=== PATIENT | female | born 1990 | race Caucasian/White ===

== ENCOUNTER 2016-12-05 01:09 | Emergency (ER) | payer BC ==
[~2016-12-05] VITALS: Ht 165.1 cm; Wt 61.4 kg
[~2016-12-05 01:09] MED LIST: PERCOCET 325 MG1 TA2 PO; PREDNISONE20 MG PO; PRENATAL1 TA1 PO
[2016-12-05 01:13] VITALS: BP 137/61
[2016-12-05] MEDS ORDERED: NEXPLANON68 MG (01:13)
[2016-12-05 01:54] LABS: BASO # 0.1 (0.0-0.2); BASO % 0.5 % (0.0-2.0); EOS % 0.3 % (0-4.0); GRAN # 7.4 (1.4-6.5); GRAN % 70.8 % (42.2-75.2); HEMATOCRIT 38.3 % (37.0-47.0); HEMOGLOBIN 13.1 g/dl (12.5-16.0); LYMPH % 18.9 % (20.0-51.0); MEAN CELL VOLUME 88 fl (80.0-100.0); MEAN CORPUSCULAR HEMOGLOBIN 30 pg (27.0-31.0); MEAN CORPUSCULAR HGB CONC 34 g/dl (33.0-37.0); MEAN PLATELET VOLUME 9.1 fl (7.4-10.4); MONO % 9.1 % (1.7-9.3); PLATELET COUNT 246 K/mm3 (130-400); RED BLOOD COUNT 4.37 M/mm3 (4.10-5.30); REDCELL DISTRIBUTION WIDTH-CV 12.3 % (11.5-14.5); WHITE BLOOD COUNT 10.4 K/mm3 (4.8-10.8)
[2016-12-05 02:09] LABS: ADJUSTED CALCIUM 8.9 mg/dL (8.4-10.2); ALANINE AMINOTRANSFERASE 22 U/L (9-52); ALBUMIN 4.5 gm/dL (3.5-5.0); ALKALINE PHOSPHATASE 59 U/L (50-136); ANION GAP 14 mmol/L (7-16); BILIRUBIN,TOTAL 0.6 mg/dL (0.0-1.0); BLOOD UREA NITROGEN 17 mg/dL (7-17); CALCIUM 9.3 mg/dL (8.4-10.2); CARBON DIOXIDE 24 mmol/L (22-30); CHLORIDE 102 mmol/L (98-107); CREATININE, serum 0.76 mg/dL (0.52-1.25); GLUCOSE 95 mg/dL (74-106); LIPASE 134 U/L (23-300); POTASSIUM 3.8 mmol/L (3.4-5.0); SODIUM 140 mmol/L (137-145); TOTAL PROTEIN 7.8 gm/dL (6.4-8.2)
[2016-12-05 02:36] LABS: TROPONIN-I < 0.012 ng/mL (0.000-0.034)
[2016-12-05] MEDS ORDERED: ATIVAN 0.50.5 MG/TAB PO (02:45)
[2016-12-05 02:52] VITALS: PULSE 66; TEMP 98.2
== END 2016-12-05 02:54 | disposition home or self-care (01) ==
LOC: COL.ER 01:09
PROVIDERS: Physician Assistant
DX: R07.9 Chest pain, unspecified (principal); R09.1 Pleurisy; R11.0 Nausea; R06.02 Shortness of breath; M62.838 Other muscle spasm; F41.9 Anxiety disorder, unspecified
CPT/HCPCS: J2060

== ENCOUNTER 2018-04-06 01:39 | Emergency (ER) | payer OTHER, BC ==
[~2018-04-06] VITALS: Ht 165.1 cm; Wt 68.6 kg
[~2018-04-06 01:39] MED LIST changes: +ATIVAN 0.50.5 MG/TAB PO; +NEXPLANON68 MG
[2018-04-06 01:44] VITALS: BP 132/68; TEMP 98
[2018-04-06 02:25] LABS: COLLECTION METHOD CLEAN CATCH
[2018-04-06 02:28] LABS: BASO # 0.1 (0.0-0.2); BASO % 0.6 % (0.0-2.0); EOS # 0.1 (0.0-0.7); EOS % 0.7 % (0-4.0); GRAN # 8.1 (1.4-6.5); GRAN % 68.5 % (42.2-75.2); LYMPH # 2.7 (1.2-3.4); LYMPH % 22.6 % (20.0-51.0); MEAN CELL VOLUME 88 fl (80.0-100.0); MEAN CORPUSCULAR HEMOGLOBIN 31 pg (27.0-31.0); MEAN CORPUSCULAR HGB CONC 35 g/dl (33.0-37.0); MEAN PLATELET VOLUME 9.3 fl (7.4-10.4); MONO # 0.9 (0.1-0.6); MONO % 7.3 % (1.7-9.3); PLATELET COUNT 235 K/mm3 (130-400); RED BLOOD COUNT 3.93 M/mm3 (4.10-5.30); REDCELL DISTRIBUTION WIDTH-CV 12.9 % (11.5-14.5)
[2018-04-06 02:32] LABS: MUCOUS Present /lpf; PH 6 (5-8); SQUAMOUS EPITHELIAL 0-2 /hpf; URINE APPEARANCE Hazy; URINE BACTERIA None Seen /hpf; URINE BILIRUBIN Negative (NEGATIVE); URINE BLOOD 3+ (NEGATIVE); URINE COLOR Yellow; URINE GLUCOSE Negative (NEGATIVE); URINE KETONE Negative (NEGATIVE); URINE LEUKOCYTE ESTERASE Negative (NEGATIVE); URINE NITRATE Negative (NEGATIVE); URINE PROTEIN(semi-quant) 1+ (NEGATIVE); URINE RBC 0-2 /hpf; URINE UROBILINOGEN Negative (NEGATIVE)
[2018-04-06 02:43] LABS: HEMATOCRIT 34.7 % (37.0-47.0)
[2018-04-06 02:48] LABS: ALBUMIN 3.9 gm/dL (3.5-5.0); BILIRUBIN,TOTAL 0.3 mg/dL (0.0-1.0); CALCIUM 8.8 mg/dL (8.4-10.2); CREATININE, serum 0.59 mg/dL (0.52-1.25); POTASSIUM 3.3 mmol/L (3.4-5.0); TOTAL PROTEIN 6.9 gm/dL (6.4-8.2)
[2018-04-06] MEDS ORDERED: K-DUR 10 MEQ T10 MEQ PO (02:54)
[2018-04-06 03:17] VITALS: PULSE 79
== END 2018-04-06 03:19 | disposition home or self-care (01) ==
LOC: COL.ER 01:39
PROVIDERS: Emergency Medicine
DX: R00.1 Bradycardia, unspecified (principal); Z87.59 Personal history of other complications of pregnancy, childbirth and the puerperium
CPT/HCPCS: J7030

== ENCOUNTER 2018-12-25 13:34 | Emergency (ER) | payer OTHER ==
[~2018-12-25] VITALS: Ht 165.1 cm; Wt 65.9 kg
[~2018-12-25 13:34] MED LIST changes: +K-DUR 10 MEQ T10 MEQ PO
[2018-12-25 13:42] VITALS: TEMP 97.2
[2018-12-25 14:26] LABS: BASO % 0.3 % (0.0-2.0); EOS % 0.2 % (0-4.0); GRAN # 7.2 (1.4-6.5); GRAN % 74.7 % (42.2-75.2); HEMATOCRIT 41.4 % (37.0-47.0); HEMOGLOBIN 13.8 g/dl (12.5-16.0); LYMPH # 1.7 (1.2-3.4); LYMPH % 17.4 % (20.0-51.0); MEAN CELL VOLUME 88 fl (80.0-100.0); MEAN CORPUSCULAR HEMOGLOBIN 29 pg (27.0-31.0); MEAN CORPUSCULAR HGB CONC 33 g/dl (33.0-37.0); MEAN PLATELET VOLUME 9.1 fl (7.4-10.4); MONO # 0.7 (0.1-0.6); MONO % 7.1 % (1.7-9.3); PLATELET COUNT 331 K/mm3 (130-400); RED BLOOD COUNT 4.69 M/mm3 (4.10-5.30); REDCELL DISTRIBUTION WIDTH-CV 12.3 % (11.5-14.5)
[2018-12-25 14:27] LABS: ALANINE AMINOTRANSFERASE < 6 U/L (9-52); ALBUMIN 4.6 gm/dL (3.5-5.0); ALKALINE PHOSPHATASE 64 U/L (50-136); ANION GAP 13 mmol/L (7-16); AST,SGOT 24 U/L (15-37); BILIRUBIN,TOTAL 0.5 mg/dL (0.0-1.0); BLOOD UREA NITROGEN 13 mg/dL (7-17); CALCIUM 9.5 mg/dL (8.4-10.2); CARBON DIOXIDE 23 mmol/L (22-30); CHLORIDE 104 mmol/L (98-107); CREATININE, serum 0.79 (0.52-1.25); GLUCOSE 109 mg/dL (74-106); POTASSIUM 3.9 mmol/L (3.4-5.0); SODIUM 140 mmol/L (137-145); TOTAL PROTEIN 8.4 gm/dL (6.4-8.2)
[2018-12-25 14:45] LABS: HCG,QUANTITATIVE < 2 mIU/mL (0-5)
[2018-12-25] MEDS ORDERED: METHERGINE0.2 MG/TAB PO (17:02)
[2018-12-25 17:55] VITALS: BP 119/71; PULSE 77
== END 2018-12-25 17:56 | disposition home or self-care (01) ==
LOC: COL.ER 13:34
PROVIDERS: Nurse Practitioner
DX: N92.0 Excessive and frequent menstruation with regular cycle (principal); Z88.0 Allergy status to penicillin; Z88.1 Allergy status to other antibiotic agents
CPT/HCPCS: J2210

== ENCOUNTER 2024-03-07 06:12 | Inpatient (IN) | payer BC ==
[2024-03-07] VITALS (53 sets, daily range): BP systolic 97–129; BP diastolic 51–110; PULSE 59–90; TEMP 97.8–98.6
[~2024-03-07] VITALS: Ht 165.1 cm; Wt 90.0 kg
[~2024-03-07 06:12] MED LIST changes: +METHERGINE0.2 MG/TAB PO
--- NOTE | 2024-03-07 06:20 | NUR ---
PT AMBULATES ONTO THE UNIT WITH SIGNIFICANT OTHER FOR SCHEDULED INDUCTION OF LABOR.PT REPORTS ACTIVE MOVEMENTS FROM BABY.PT DENIES LOF/VB AND CONTRACTIONS.POC REVIEWED WITH PT AND SIGNIFICANT OTHER.EFM AND TOCO TRACING CATEGORY 1. CONSENTS REVIEWED AND SIGNED.PT VERBALIZES UNDERSTANDING.
[2024-03-07] MEDS ORDERED: LR 1,000 ML IV SCH (06:30)
[2024-03-07] MEDS ORDERED: LR & Oxytocin 500 ML IV SCH (06:30)
[2024-03-07] MEDS ORDERED: PRENATAL MVI (06:34)
[2024-03-07 07:23] LABS: BASO % 0.2 % (0.0-2.0); EOS # 0.1 K/mm3 (0.0-0.7); EOS % 0.5 % (0.0-4.0); GRAN % 73.7 % (42.2-75.2); HEMOGLOBIN 11.5 g/dl (12.5-16.0); LYMPH # 2.2 K/mm3 (1.2-3.4); LYMPH % 17.6 % (20.0-51.0); MEAN CELL VOLUME 94 fl (80.0-100.0); MEAN CORPUSCULAR HEMOGLOBIN 32 pg (27-31); MEAN CORPUSCULAR HGB CONC 34 g/dl (33.0-37.0); MEAN PLATELET VOLUME 10.6 fl (7.4-10.4); MONO # 0.9 K/mm3 (0.1-0.6); MONO % 7.4 % (1.7-9.3); PLATELET COUNT 235 K/mm3 (130-400); RED BLOOD COUNT 3.61 M/mm3 (4.10-5.30)
[2024-03-07 07:31] LABS: HEMATOCRIT 33.8 % (37.0-47.0)
--- NOTE | 2024-03-07 09:29 | NUR ---
DR WILSON AT BEDSIDE.SVE /-2. [address] WILSON.CLEAR FLUID RETURNED.PT TOLERATED PROCEDURE WELL.
[2024-03-07] MEDS ORDERED: diphenhydrAMINE 25 MG CAP PO PRN (11:00)
[2024-03-07] MEDS ORDERED: diphenhydrAMINE 50 MG/ML 1 ML VIAL IV PRN (11:00)
[2024-03-07] MEDS ORDERED: Naloxone 0.4 MG/ML VIAL IV PRN ×2 (11:00→21:30)
[2024-03-07] MEDS ORDERED: ePHEDrine 50 MG/10 ML VIAL IV PRN (11:00)
[2024-03-07] MEDS ORDERED: Ondansetron 4 MG/2 ML VIAL IV PRN (11:00)
[2024-03-07] MEDS ORDERED: ROPivacaine PF 0.2% 200 ML IV ONE (12:16)
--- NOTE | 2024-03-07 12:52 | NUR ---
PT SITTING UP ON THE SIDE OF THE BED FOR EPIDURAL PLACEMENT. LR BOLUS INFUSING PER PROTOCOL.BP AND PULSE OX TRACING EVERY 5 MINUTES.DIFFICULTY TRACING EFM AND TOCO DUE TO MATERNAL POSITIONING. 1238 TEST DOSE ADMINISTERED PER NIXON COE.PT TOLERATED PROCEDURE WELL.
--- NOTE | 2024-03-07 18:30 | NUR ---
PERIOD OF INCREASED VARIABILITY IN WHICH FHR DECREASED TO 120 FOR 3 MIN, RETURNING TO BL OF 130-135. MOD VARIABILITY AND ACCELERATIONS
--- NOTE | 2024-03-07 19:38 | NUR ---
1937-[facility]D REMOVED AND [facility] REMOVED. PT PREPPED FOR PUSHING. 1940- PUSHING WITH CONTRACTIONS. 1948- DELIVERY. PITOCIN OFF. VANCOMYCIN STOPPED. APROX 100ML INFUSED.
--- NOTE | 2024-03-07 20:04 | NUR ---
EPIDURAL PUMP OFF.
--- NOTE | 2024-03-07 20:30 | NUR ---
DIFFICULTY OBTAINING BP DUE TO PT SHAKING. BLEEDING MINIMAL, PT SKIN COLOR PINK, GOOD CAP REFILL.
[2024-03-07] MEDS ORDERED: traZODone 50 MG TAB PO PRN (21:00)
[2024-03-07] MEDS ORDERED: Mag/Al Hydrox/Simeth Susp 30 ML CUP PO PRN (21:30)
[2024-03-07] MEDS ORDERED: Loratadine 10 MG TAB PO PRN (21:30)
[2024-03-07] MEDS ORDERED: Magnes Hydrox (MOM) 80 MG/ML 30 ML CUP PO PRN (21:30)
[2024-03-07] MEDS ORDERED: Acetaminophen 500 MG TAB PO SCH (21:30)
[2024-03-07] MEDS ORDERED: oxyCODONE 5 MG TAB PO PRN (21:30)
[2024-03-07] MEDS ORDERED: Witch Hazel 50% Pads Bulk TUB TP PRN (21:30)
[2024-03-07] MEDS ORDERED: Measles/Mumps/Rubella Virus Vaccine Live w Diluent 0.5 ML VIAL SQ SCH (21:30)
[2024-03-07] MEDS ORDERED: Phenylephrine/Mineral Oil/Petrolatum 57 GM TUBE RC PRN (21:30)
[2024-03-07] MEDS ORDERED: Ibuprofen 600 MG TAB PO SCH (21:30)
[2024-03-07] MEDS ORDERED: LR 1,000 ML IV PRN (22:15)
--- NOTE | 2024-03-07 23:20 | NUR ---
SMALL AMOUNT BLOOD OOZING FROM SITE. BANDAID PLACED AFTER CLEANSING WITH ALCOHOL
--- NOTE | 2024-03-07 23:25 | NUR ---
PT STILL RELUCTANT TO GET UP BECAUSE RIGHT LEG STILL VERY NUMB. SITTING ON SIDE OF BED NOW. CRUZ-STEADY IN ROOM AND EXPLAINED HOW THAT WILL HELP HER TO STAND WHEN SHE IS READY. WILL LET NURSE KNOW WHEN SHE WANTS TO TRY.
--- NOTE | 2024-03-08 | NUR ---
PT UP TO BR FOR FIRST TIME SINCE DELIVERY. RT LEG STILL VERY NUMB. CRU[place] USED AND PT DID WELL SUPPORTING WEIGHT WITH ASSISTANCE. PERICARE GIVEN WITH INSTRUCTIONS. ICE AND TUCKS PADS TO PERINEUM.
[2024-03-08 01:00] VITALS: TEMP 98.2
--- NOTE | 2024-03-08 01:00 | NUR ---
PT UP TO BR. USED CRUZ-STEADY BECAUSE RT LEG IS STILL WEAK. PT ABLE TO VOID WITHOUT DIFFICULTY. PERFORMED OWN ASHLEY CARE WITH MINIMAL ASSISTANCE. WAS ABLE TO STAND AND WALK BACK TO THE BED WITH ASSIST OF ONE.
--- NOTE | 2024-03-08 02:15 | NUR ---
PT UP TO VOID AGAIN. ABLE TO AMBULATE INDEPENDENTLY NOW. VOICES NO COMPLAINTS AT THIS TIME.
[2024-03-08 08:00] VITALS: BP 122/61; PULSE 66; TEMP 98.2
[2024-03-08] MEDS ORDERED: Sennosides/Docusate 8.6-50 MG TAB PO SCH (08:00)
[2024-03-08] MEDS ORDERED: IBU600 MG PO (08:49)
--- NOTE | 2024-03-08 09:55 | NUR ---
Initial visit; Parents thanked Public Records Researcher for looking in on them and offering congratulations and God's blessings for the of their son. Public Records Researcher thanked family for choosing [facility].
[2024-03-08 16:00] VITALS: BP 118/64; PULSE 74; TEMP 98.1
--- NOTE | 2024-03-08 16:53 | NUR ---
PT CALLS THIS NURSE INTO ROOM.PT HAS COMPLAINTS OF INTENSE PAIN WHEN SITTING DOWN ON BOTTOM.THIS RN INSPECTS PTS PERINEUM AND VISUALIZES A MEDIUM GRAPE SIZED EXTERNAL HEMORRHOID.THIS RN ASSISTS PT IN APPLYING PREPARATION H TO THE AFFECTED AREA. PT TOLD TO CALL THIS RN BACK INTO ROOM IF NEED FOR FURTHER ASSISTANCE.PT VERBALIZES UNDERSTANDING.
[2024-03-08 20:00] VITALS: BP 126/64; PULSE 68; TEMP 97.3
[2024-03-09 07:36] VITALS: BP 101/64; PULSE 46; TEMP 98
== END 2024-03-09 12:00 | disposition home or self-care (01) | DRG 806 ==
LOC: LDR 06:12 → OB 06:12
PROVIDERS: ADMIT Obstetrics & Gynecology
PROC: 10E0XZZ Delivery of Products of Conception, External Approach (ICD-10-PCS; principal; 2024-03-07)
PROC: 0HQ9XZZ Repair Perineum Skin, External Approach (ICD-10-PCS; 2024-03-07)
PROC: 3E033VJ Introduction of Other Hormone into Peripheral Vein, Percutaneous Approach (ICD-10-PCS; 2024-03-07)
PROC: 10907ZC Drainage of Amniotic Fluid, Therapeutic from Products of Conception, Via Natural or Artificial Opening (ICD-10-PCS; 2024-03-07)
DX: O48.0 Post-term pregnancy (principal); O87.2 Hemorrhoids in the puerperium; Z37.0 Single live birth; K21.9 Gastro-esophageal reflux disease without esophagitis; O99.62 Diseases of the digestive system complicating childbirth; O99.824 Streptococcus B carrier state complicating childbirth; O99.02 Anemia complicating childbirth; O70.0 First degree perineal laceration during delivery; D64.9 Anemia, unspecified; Z3A.40 40 weeks gestation of pregnancy; Z88.0 Allergy status to penicillin
CPT/HCPCS: J2590; J2795; J3370; J7050; J7120